=== PATIENT | female | born 1995 | race Asian ===

== ENCOUNTER → 2020-03-24 | Outpatient (CLI) | payer BC ==
[~2020-03-24] MED LIST: IBUP-1222 PO; PREN1TAB62 PO
== END | disposition home or self-care (01) ==
LOC: STAR 11:30
PROVIDERS: ATTEND Anesthesiology
DX: Z01.812 Encounter for preprocedural laboratory examination (principal); Z20.828 Contact with and (suspected) exposure to other viral communicable diseases
CPT/HCPCS: 36415; 87635

== ENCOUNTER 2020-03-25 06:20 | Inpatient (IN) | payer BC ==
[~2020-03-25] VITALS: Ht 167.6 cm; Wt 77.2 kg
[2020-03-25] MEDS ORDERED: OXYTOCIN 30U/ 0.9% NaCL 500ML 500 ML IV PRN (06:25)
[2020-03-25] MEDS ORDERED: OXYTOCIN 30U/ 0.9% NaCL 500ML 500 ML IV ONE (06:25)
[2020-03-25] MEDS ORDERED: TERBUTALINE 1 MG/ML, 1ML SQ PRN (06:30)
[2020-03-25] MEDS ORDERED: TERBUTALINE 1 MG/ML, 1ML IVPush PRN (06:30)
[2020-03-25] MEDS ORDERED: FENTANYL PF 100 MCG/2ML IV PRN (06:30)
[2020-03-25] MEDS ORDERED: FENTANYL PF 100 MCG/2ML IVPush PRN (06:30)
[2020-03-25] MEDS ORDERED: ONDANSETRON 2MG/ML, 2ML IVPush PRN ×2 (06:30→11:00)
[2020-03-25] MEDS ORDERED: CALCIUM CARBONATE 500 MG TAB.CHEW PO PRN ×2 (06:30→20:00)
[2020-03-25 06:50] VITALS: BP 120/71
[2020-03-25] MEDS: LACTATED RINGERS 1,000 ML IV SCH ×4 (06:55→18:52)
[2020-03-25] MEDS ORDERED: PLEASE ENTER HEIGHT AND WEIGHT MC SCH (07:00)
[2020-03-25] MEDS ORDERED: PLEASE ENTER ALLERGIES MC SCH ×2 (07:00)
[2020-03-25] MEDS ORDERED: PREN1TAB62 PO (07:08)
[2020-03-25 07:09] VITALS: BP 120/71
[2020-03-25] MEDS ORDERED: OXYTOCIN 30U/ 0.9% NaCL 500ML 500 ML ONE ×2 (07:47→19:37)
[2020-03-25] MEDS ORDERED: MISOPROSTOL 200 MCG TABLET ONE (07:47)
[2020-03-25] MEDS ORDERED: LIDOCAINE 1%, 20ML ONE (07:47)
[2020-03-25 07:57] LABS: MEAN CORPUSCULAR HGB CONC 31.7 g/dL (32.4-35.8); MEAN PLATELET VOLUME 11.2 fL (7.4-10.4); PLATELET COUNT 300 x10^3/uL (130-400); RED BLOOD COUNT 4.66 x10^6/uL (3.82-5.3); RED CELL DISTRIBUTION WIDTH 17.3 % (9.6-15.2)
[2020-03-25 08:06] LABS: BASOPHILS # (AUTO) 0.04 x10^3/uL (0-0.1); BASOPHILS % (AUTO) 1 % (0-1); EOSINOPHILS # (AUTO) 0.13 x10^3/uL (0-0.4); EOSINOPHILS % (AUTO) 1 % (1-7); LYMPHOCYTES % (AUTO) 16 % (22-44); MD MORPH REVIEW ONLY; MONOCYTES # (AUTO) 0.36 x10^3/uL (0.2-0.8); MONOCYTES % (AUTO) 4 % (2-9); NEUTROPHILS # (AUTO) 7.17 x10^3/uL (1.8-6.8); NEUTROPHILS % (AUTO) 78 % (42-75)
[2020-03-25 08:08] LABS: <PLATELET ESTIMATE> ADEQUATE; ANISOCYTOSIS 1+; GIANT PLATELETS 1+; LARGE PLATELETS 2+; MICROCYTOSIS 1+
[2020-03-25] MEDS ORDERED: NEWBORN KIT ONE (08:13)
[2020-03-25] MEDS ORDERED: FENTANYL/BUPIV./NS/PF 250 ML EPIDCONT ONE (08:53)
[2020-03-25] MEDS ORDERED: BUPIVACAINE 0.25% ONE (09:06)
[2020-03-25] MEDS ORDERED: FENTANYL/BUPIV./NS/PF 250 ML EPIDCONT SCH (10:52)
[2020-03-25] MEDS ORDERED: DIPHENHYDRAMINE 50 MG/ML, 1ML IVPush PRN (11:00)
[2020-03-25] MEDS ORDERED: LACTATED RINGERS 1,000 ML IVBOLUS PRN (11:00)
[2020-03-25] MEDS ORDERED: EPHEDRINE 50 MG/ML, 1ML IVPush PRN (11:00)
[2020-03-25] MEDS ORDERED: NALOXONE 0.4 MG/ML, 1ML IVPush PRN (11:00)
[2020-03-25] MEDS: D5%-LACTATED RINGERS 1,000 ML IV SCH ×2 (12:38→14:25)
[2020-03-25] MEDS ORDERED: ONDANSETRON 2MG/ML, 2ML ONE (12:51)
[2020-03-25] MEDS ORDERED: IBUPROFEN 600 MG TABLET ONE (19:37)
[2020-03-25] MEDS: IBUPROFEN 600 MG TABLET PO PRN (19:43)
[2020-03-25] MEDS: OXYTOCIN 30U/ 0.9% NaCL 500ML 500 ML IV SCH (19:58)
[2020-03-25] MEDS ORDERED: ACETAMINOPHEN 325 MG TABLET PO PRN (20:00)
[2020-03-25] MEDS ORDERED: ONDANSETRON 2MG/ML, 2ML IV PRN (20:00)
[2020-03-25] MEDS ORDERED: DOCUSATE 100 MG CAPSULE PO PRN (20:00)
[2020-03-25] MEDS ORDERED: SIMETHICONE 80 MG CHEW TAB PO PRN (20:00)
[2020-03-25] MEDS ORDERED: MISOPROSTOL 200 MCG TABLET PR PRN (20:00)
[2020-03-25 21:50] VITALS: BP 115/77
[2020-03-26 00:18] VITALS: BP 114/77
[2020-03-26] MEDS: IBUPROFEN 600 MG TABLET PO PRN ×3 (02:08→14:28)
[2020-03-26 03:00] LABS: MEAN CORPUSCULAR HEMOGLOBIN 23.6 pg (27.0-34.8); MEAN CORPUSCULAR HGB CONC 30.7 g/dL (32.4-35.8); MEAN PLATELET VOLUME 10.8 fL (7.4-10.4); PLATELET COUNT 243 x10^3/uL (130-400); RED BLOOD COUNT 4.19 x10^6/uL (3.82-5.3); RED CELL DISTRIBUTION WIDTH 16.7 % (9.6-15.2)
[2020-03-26 03:12] LABS: BASOPHILS # (AUTO) 0.09 x10^3/uL (0-0.1); BASOPHILS % (AUTO) 1 % (0-1); EOSINOPHILS # (AUTO) 0.05 x10^3/uL (0-0.4); EOSINOPHILS % (AUTO) 0 % (1-7); LYMPHOCYTES # (AUTO) 1.58 x10^3/uL (1-3.4); LYMPHOCYTES % (AUTO) 10 % (22-44); MD NO; MONOCYTES # (AUTO) 0.88 x10^3/uL (0.2-0.8); MONOCYTES % (AUTO) 6 % (2-9); NEUTROPHILS # (AUTO) 13.28 x10^3/uL (1.8-6.8); NEUTROPHILS % (AUTO) 84 % (42-75)
[2020-03-26 03:48] VITALS: BP 122/79
[2020-03-26] MEDS: OXYcodone/APAP 5/325MG TABLET PO PRN ×4 (03:52→18:32)
[2020-03-26] MEDS: OXYTOCIN 30U/ 0.9% NaCL 500ML 500 ML IV SCH (04:59)
[2020-03-26 07:50] VITALS: BP 124/85
[2020-03-26] MEDS ORDERED: PRENATAL VIT/IRON/FA 1 EACH TABLET PO SCH (09:00)
[2020-03-26] MEDS ORDERED: IBUP-1222 PO (09:34)
[2020-03-26 12:20] VITALS: BP 119/82
[2020-03-26 16:15] VITALS: BP 136/86
== END 2020-03-26 19:15 | disposition home or self-care (01) | DRG 807 ==
LOC: LDIP 06:20 → 2NW 21:23
PROVIDERS: ADMIT Obstetrics & Gynecology; ATTEND Obstetrics & Gynecology
PROC: 10E0XZZ Delivery of Products of Conception, External Approach (ICD-10-PCS; principal; 2020-03-25)
PROC: 10907ZC Drainage of Amniotic Fluid, Therapeutic from Products of Conception, Via Natural or Artificial Opening (ICD-10-PCS; 2020-03-25)
PROC: 3E033VJ Introduction of Other Hormone into Peripheral Vein, Percutaneous Approach (ICD-10-PCS; 2020-03-25)
PROC: 3E0R3BZ Introduction of Anesthetic Agent into Spinal Canal, Percutaneous Approach (ICD-10-PCS; 2020-03-25)
PROC: 00HU33Z Insertion of Infusion Device into Spinal Canal, Percutaneous Approach (ICD-10-PCS; 2020-03-25)
DX: O69.81X0 Labor and delivery complicated by cord around neck, without compression, not applicable or unspecified (principal); Z37.0 Single live birth; O70.1 Second degree perineal laceration during delivery; Z3A.39 39 weeks gestation of pregnancy; Z20.828 Contact with and (suspected) exposure to other viral communicable diseases
CPT/HCPCS: 36415; J7121; 85025; 86592; 86850; 86900; 87635; G0378; J2405; J2590; J3010; J7120